=== PATIENT | female | born 1950 | race Caucasian/White ===

== ENCOUNTER 2023-02-27 13:14 | Emergency (ER) | payer OTHER ==
[2023-02-27 13:22] VITALS: BP 135/98; PULSE 75; RESP 18; TEMP 98; BMI 29.5
[2023-02-27] MEDS ORDERED: IBUPROFEN 400 MG TABLET (FP) PO ONE (18:28)
[2023-02-27] MEDS ORDERED: ACETAMINOPHEN 500 MG TABLET (FP) ONE (18:28)
[2023-02-27] MEDS ORDERED: DIPHTH,PERTUSS(ACELL),TET 0.5 ML DISP.SYRIN IM ONE (18:29)
[2023-02-27] MEDS: DIPHTH,PERTUSS(ACELL),TET 0.5 ML DISP.SYRIN IM ONE (18:46)
[2023-02-27] MEDS: ACETAMINOPHEN 325 MG TABLET (FP) PO ONE (18:46)
[2023-02-27] MEDS: oxyCODONE HCL 5 MG TABLET PO ONE (18:47)
[2023-02-27] MEDS ORDERED: oxyCODONE HCL 5 MG TABLET ONE (18:50)
== END 2023-02-27 18:54 | disposition home or self-care (01) ==
LOC: JER 13:14
PROC: 3E0234Z Introduction of Serum, Toxoid and Vaccine into Muscle, Percutaneous Approach (ICD-10-PCS; principal; 2023-02-27)
DX: S42.292A Other displaced fracture of upper end of left humerus, initial encounter for closed fracture (principal); M25.512 Pain in left shoulder; S09.90XA Unspecified injury of head, initial encounter; W01.0XXA Fall on same level from slipping, tripping and stumbling without subsequent striking against object, initial encounter; W22.8XXA Striking against or struck by other objects, initial encounter; Y93.01 Activity, walking, marching and hiking
CPT/HCPCS: 70450-TC; 72125-TC; 73030-TC-LT-FY; 73060-TC-LT-FY; 73070-TC-LT-FY; 90471; 90715; 99284-25

== ENCOUNTER 2023-03-05 11:42 | Emergency (ER) | payer SELFPAY ==
[2023-03-05 12:07] VITALS: RESP 18; TEMP 98.4; BMI 35.2
[2023-03-05] MEDS ORDERED: oxyCODONE HCL 5 MG TABLET PO ONE (13:38)
[2023-03-05] MEDS ORDERED: oxyCODONE HCL 5 MG TABLET ONE ×2 (14:15→14:16)
[2023-03-05 15:03] VITALS: BP 137/72; PULSE 71
== END 2023-03-05 15:03 | disposition home or self-care (01) ==
LOC: JER 11:42
DX: S42.352D Displaced comminuted fracture of shaft of humerus, left arm, subsequent encounter for fracture with routine healing (principal); M79.602 Pain in left arm; W19.XXXD Unspecified fall, subsequent encounter
CPT/HCPCS: 71045-TC-FY; 99283-25